=== PATIENT | female | born 1965 | race Caucasian/White ===

== ENCOUNTER → 2018-01-07 | Day surgery (SDC) | payer BC ==
[2017-12-02 09:55] VITALS: Ht 167.6 cm; Wt 83.6 kg
[~2018-01-07] VITALS: Ht 167.6 cm; Wt 83.6 kg
[~2018-01-07] MED LIST: ATROPINE SULFATE 0.1 MG/ML 5ML SYR IV PRN; BUPIVACAINE 0.5 % 5 MG/1 ML PF 10ML VIAL ONE; CLINDAMYCIN 600 MG/54 ML D5W IV SCH; CLINDAMYCIN 600MG IV SCH; DEXAMETHASONE SOD INJ 4 MG/ML VIAL ONE; EpHEDrine SULFATE INJ 50 MG/ML AMP IV PRN; FENTANYL CITRATE INJ 50 MCG/1 ML 2 ML VIAL ONE; HYDR200T5 PO; HYDROmorphone INJ 2 MG/ML SYR/VIAL IV PRN; LACTATED RINGER'S 1000ML 1,000 ML IV SCH; LIDOCAINE HCL 2% 2 ML VIAL (20MG/ML) ONE; MESA10002 PR; MIDAZOLAM HCL 1 MG/ML 2ML VIAL ONE; ONDA4TAB46 PO; ONDANSETRON INJ 2 MG/ML 2 ML VIAL IV PRN; ONDANSETRON INJ 2 MG/ML 2 ML VIAL ONE; OXYC-57 PO; PHENYLEPHRINE 100MCG/ML 5ML SYR IV PRN; PROPOFOL IV EMULSION 10 MG/ML 20 ML VIAL ONE
--- NOTE | 2018-01-07 08:26 | History & Physical Bridge - SC ---
H&P Re-Evaluation Bridge Note: I have examined the patient, reviewed the History & Physical and in the interval since the performance of the History & Physical I have noted the following changes of clinical significance: No changes noted. She elects to proceed with 1st MTPJ fusion of the left foot along with correction of left hammer toes and brad osteotomies of 2nd and 3rd digits and metatarsals. All RBCA have been explained. Please the last clinical note for full HPI.
--- NOTE | 2018-01-07 08:29 | Discharge Instructions-SurgCtr ---
Discharge Instructions Date of Service Jan 07, 2018. Visit Reason for Visit: Left Foot Hallux Valgus, Hammertoes Discharge Discharge Diagnosis / Problem: same as preoperative dx Discharge Goals Goal(s): Decrease discomfort, Improve function Activity Recommendations Activity Limitations: per Instructions/Follow-up section Anesthesia . Post Anesthesia Instructions: If you have had General Anesthesia or IV Sedation: * Do not drive today. * Resume driving when surgeon permits. * Do not make important decisions or sign legal documents today. * Call surgeon for: 1. Temperature elevations greater than 101 degrees F. 2. Uncontrollable pain. 3. Excessive bleeding. 4. Persistent nausea and vomiting. 5. Medication intolerance (nausea, vomiting or rash). * For nausea and vomiting use only clear liquids such as: tea, soda, bouillon until nausea subsides, then gradually increase diet as tolerated. * If you have any concerns or questions, call your surgeon's office. If physician is unavailable and it is an emergency, call 911 or go to the nearest emergency room. . Instructions / Follow-Up Instructions / Follow-Up Keep follow up with Dr. Gross's office as scheduled Follow post operative instructions dispensed at preoperative appointment Diet Recommendations Home Diet: no limitations Pending Studies Studies pending at discharge: no Medical Emergencies . Who to Call and When: Medical Emergencies: If at any time you feel your situation is an emergency, please call 911 immediately. . Non-Emergent Contact Non-Emergency issues call your: Surgeon . . "Provider Documentation" section prepared by Trell Gross. .
--- NOTE | 2018-01-07 11:01 | [facility] Post Operative Brief Note ---
Immediate Operative Summary Operative Date Jan 07, 2018. Pre-Operative Diagnosis Left Foot Hallux Valgus, Hammertoes Post-Operative Diagnosis same Procedure(s) Performed Left Foot Fusion 1st Metatarsal Phalangeal Joint And Second And Third Proximal Phalangeal Joint Fusion With Brianne Osteotomy Surgeon Dr. Markie Gross Air Drier Machine Operator Surgeon(s) 0 Estimated Blood Loss 5CC Findings Consistent with Post-Op Diagnosis Specimens none Anesthesia Type General Disposition Disposition: Recovery Room / PACU
--- NOTE | 2018-01-07 11:29 | [facility] Operative Report ---
Operative Report Operative Date Jan 07, 2018. Pre-Operative Diagnosis Left Foot Hallux Valgus, Hammertoes Post-Operative Diagnosis same Procedure(s) Performed Left Foot Fusion 1st Metatarsal Phalangeal Joint And Second And Third Proximal Phalangeal Joint Fusion With Brianne Osteotomy Surgeon Dr. Markie Gross Bartacker Surgeon(s) 0 Estimated Blood Loss 5CC Specimens none Anesthesia Type General Disposition Recovery Room / PACU Indications Patient is failed outpatient therapy for left hallux valgus and hammertoe deformity please see the last clinical note for full HPI Description of Procedure Patient was taken to the preoperative holding area and brought to the operating room placed in the table in the normal supine position. Left lower extremity was identified with a timeout and a high calf tourniquet was applied to left lower extremity. After induction of general anesthesia, a local field block consisting of 30 cc of half percent Marcaine plain was administered to the first ray as well of the left second and third digits. Left lower extremity was prepped and draped in the normal sterile fashion. The left lower extremity was elevated and exsanguinated and the tourniquet was inflated to 250 mmHg. Attention was directed in the dorsal medial first metatarsal phalangeal joint where an incision was mapped out and performed. Careful dissection was carried through the subcutaneous tissue identifying the extensor hallucis longus tendon as well as the medial neurovascular bundle. Both were appropriately retracted and the capsule of the first metatarsophalangeal joint was identified and incised. Periosteum and capsular tissue were freed from the first metatarsal phalangeal joint from both the first metatarsal as well as the proximal phalanx of the hallux. Excellent exposure of the metatarsal head as well as base of the proximal phalanx was noted. There were significant degenerative changes with less than 30% of the articular cartilage left on the first metatarsal head. Significant hallux valgus deformity was also noted intraoperatively. A right TAPP reamer system was used to provide the cartilage from the first metatarsal head. This bone was noted to be extremely soft and the reamers aggressively denuded the cartilage and part of the metatarsal head. Corresponding reamers were used in the base of the proximal phalanx without any complications. Both the metatarsal head and base of proximal phalanx were fenestrated with a 2 mm wire. Temporary fixation was employed using K wire fixation excellent alignment of the joint was noted in triplanar position. Excellent reduction of the hallux valgus deformity was noted. The foot was loaded and the distal pulp of the hallux was noted to contact the ground appropriately. Position was checked under fluoroscopy and again with excellent triplanar position was noted with reduction of hallux valgus deformity. At this time temporary fixation was then employed from distal to proximal. It was felt that this wire was appropriate for a headless compression screw. A 3.0 headless compression screw from the right Katheryn system was thrown from distal to proximal across the first metatarsal phalangeal joint with excellent compression noted. Excellent alignment was noted under fluoroscopy. A dorsal straight locking plate was then placed on top of the first metatarsal phalangeal joint on the first metatarsal base the proximal phalanx. 2.7 screws were used in the plate into locking screws were placed proximally as well as 2 distally. Excellent apposition of the joint compression was noted no movement at the joint was noted intraoperatively excellent alignment was obtained position and length of screws were checked under fluoroscopy and noted to be excellent. The site was flushed with copious amounts of normal sterile saline and the capsular tissue was closed with 4-0 Vicryl. Subcutaneous closure was obtained with 4-0 Vicryl and the skin was closed with 4-0 nylon. Attention was directed to the dorsal second metatarsal phalangeal joint and hammertoe deformity. Incision was mapped out over the dorsal extensor tendon incision was made. Care was taken to identify and retract the extensor tendon appropriately. Distally it was traced out to the interphalangeal proximal interphalangeal joint of the second digit. The extensor tendon was then transversely incised and freed medially and laterally as well tracing it proximally proximal to the second metatarsal phalangeal joint. The capsular tissue at the second metatarsophalangeal joint was identified and incised. McGlamry elevator was used to free the second metatarsal head. Intraoperatively it was noted that approximately 20% of the articular cartilage only remained on the second metatarsal head. This did not correlate with the radiographics found preoperatively or with the clinical results that were noted in my last clinical note. We decided to proceed with a Brianne osteotomy to decompress this joint. This cut was performed starting at the dorsal distal margin of the second metatarsal head and carried proximally in a plantar direction. Approximately 3 mm of proximal displacement was obtained. The osteotomy was fixated with 2 2.0 right medical cannulated partially-threaded screws. Excellent compression and alignment of the osteotomy was noted. Decompression of the joint was noted and the overhanging lip of the second metatarsal was debrided. Attention was then again directed to the proximal interphalangeal joint where the collateral ligaments were freed in the second proximal phalanx was exposed. The head of the proximal phalanx was resected using bone cutters. The articular cartilage of the base of the intermediate phalanx of the second digit was denuded with a bur on power. Excellent cancellus bone was noted at both sites. A K wire was retrograded out the distal tip of the second toe. Position was checked under fluoroscopy and noted to be excellent. A headed cannulated cancellus screw was then thrown from distal to proximal in excellent alignment of the reduction of the fusion site at the interphalangeal joint of the second digit was done. This was a 2.5 millimeter screw from [employer] inserted per right TAPP technique. Excellent purchase and compression across the fusion site was noted. The tendon was repaired with 4-0 Vicryl. Subcutaneous tissue was closed with 4-0 Vicryl. And skin was closed with 4-0 nylon. A similar incision was mapped out over the third digit. The incision was carried out from the intermediate phalanx of the third digit proximally across the third metatarsophalangeal joint. Careful dissection was carried down through subcutaneous tissue and the extensor tendon was identified. The extensor tendon was transected at the proximal interphalangeal joint. The extensor tendon was freed medially and laterally proximally up to the level of metatarsophalangeal joint. The transverse plane deformity was noted and excellent reduction of the deformity was noted with fraying of the extensor tendon. It was still deemed necessary to perform proximal interphalangeal joint fusion for long-term predictable outcomes. Attention was directed to the proximal interphalangeal joint where the collateral ligaments were freed and the proximal phalanx was exposed. The head of the proximal phalanx was resected using bone cutters. The articular cartilage of the base of the intermediate phalanx of the third digit was denuded with a bur on power. Excellent cancellus bone was noted at both sitesA K wire was retrograded out the distal tip of the third toe. Position was checked under fluoroscopy and noted to be excellent. A headed cannulated cancellus screw was then thrown from distal to proximal in excellent alignment of the reduction of the fusion site at the interphalangeal joint of the third digit was done. This was a 2.0 millimeter screw from right medical inserted per right medical technique. Excellent purchase and compression across the fusion site was noted. The tendon was repaired with 4-0 Vicryl. Subcutaneous tissue was closed with 4-0 Vicryl. And skin was closed with 4-0 nylon. Dry sterile dressing was applied to left lower extremity. Tourniquet was deflated and immediate capillary refill was noted all 3 operative digits. Patient tolerated the procedure and anesthesia well. A well-padded posterior splint was applied to the left lower extremity. She will be nonweightbearing to left lower extremity and follow-up with me in the office in 1 week. I attest to the content of the Intraoperative Record and any orders documented therein. Any exceptions are noted below.
--- NOTE | 2018-01-07 11:31 | Anesthesia Progress Nt - [facility] ---
Anesthesia Post Op Note Date & Time Jan 07, 2018 at 11:30 Vital Signs Pain Intensity: 7 Vital Signs Past 12 Hours Date Time Temp Pulse Resp B/P (MAP) Pulse Ox O2 Delivery O2 Flow Rate FiO2 01/07/18 11:03 36.3 67 16 97/74 98 Diffusion Mask 5 01/07/18 07:21 36.5 68 12 122/74 (90) 95 Room Air Notes Mental Status: alert / awake / arousable, participated in evaluation Pt Amnestic to Procedure: Yes Nausea / Vomiting: adequately controlled Pain: adequately controlled Airway Patency, RR, SpO2: stable & adequate BP & HR: stable & adequate Hydration State: stable & adequate Anesthetic Complications: no major complications apparent
[2018-01-07 11:51] VITALS: TEMP 37.1
[2018-01-07 12:55] VITALS: BP 123/73; PULSE 58; O2SAT 95
--- NOTE | 2018-01-08 07:10 | DIAGNOSTIC IMAGING REPORT ---
L SURGICENTER FOOT, 2 VIEWS CLINICAL HISTORY: LT FOOTpostop. COMPARISON STUDY: None. FLUOROSCOPY TIME: 51 seconds.. FINDINGS: 2 fluoroscopic spot image of the left forefoot demonstrates screw fixation of the interphalangeal joints of the second and third toes as well as fusion of the first MTP joint. There is an osteotomy with screw fixation at the head of the second metatarsal. The hardware. Intact. The alignment is near-anatomic. IMPRESSION: Fluoroscopy provided for postoperative changes within the left forefoot as described above. Electronically signed by: Ameya Caruso M.D. 01/08/2018 7:09 AM Dictated Date/Time: 01/08/2018 7:07 AM
== END | disposition home or self-care (01) ==
LOC: X.SURG 07:00
PROVIDERS: ATTEND Podiatrist
DX: M20.12 Hallux valgus (acquired), left foot (principal); M20.42 Other hammer toe(s) (acquired), left foot; E78.5 Hyperlipidemia, unspecified; F41.1 Generalized anxiety disorder; E66.9 Obesity, unspecified; Z87.891 Personal history of nicotine dependence; Z68.30 Body mass index [BMI] 30.0-30.9, adult